=== PATIENT | female | born 1995 | race Caucasian/White ===

== ENCOUNTER 2017-06-28 05:17 | Emergency (ER) | END 2017-06-28 12:15 | disposition home or self-care (01) ==

== ENCOUNTER 2017-09-26 21:37 | Emergency (ER) | END 2017-09-27 02:37 | disposition home or self-care (01) ==

== ENCOUNTER 2017-10-08 18:12 | Emergency (ER) | END 2017-10-08 23:18 | disposition home or self-care (01) ==

== ENCOUNTER 2018-02-25 22:40 | Inpatient (IN) | END 2018-02-26 18:15 | disposition home or self-care (01) | DRG 781 ==

== ENCOUNTER 2018-03-10 12:07 | Outpatient (CLI) | END 2018-03-10 14:45 | disposition home or self-care (01) ==

== ENCOUNTER 2018-03-26 11:21 | Outpatient (CLI) | END 2018-03-26 14:27 | disposition home or self-care (01) ==

== ENCOUNTER 2018-04-02 13:00 | Outpatient (CLI) | END 2018-04-02 18:50 | disposition home or self-care (01) ==

== ENCOUNTER 2018-04-13 08:13 | Inpatient (IN) | END 2018-04-16 16:36 | disposition home or self-care (01) | DRG 807 ==